=== PATIENT | male | born 1950 | race Hispanic/Latino ===

== ENCOUNTER → 2019-11-12 | Outpatient (CLI) | payer OTHER ==
[~2019-11-12] MED LIST: AMLO5TAB9 PO; ASPI-1443 PO; ATOR20TA65 PO; CLOP75TA14 PO; GLIP10TA9 PO; ISOS20TA7 PO; LOSA100T58 PO; NITR0.4T50 SL; REGADENOSON 0.4 MG/5 ML PF SYG IVP SCH
== END | disposition home or self-care (01) ==
LOC: SHCH 07:52
PROVIDERS: ATTEND Internal Medicine Cardiovascular Disease
DX: R07.9 Chest pain, unspecified (principal); I25.709 Atherosclerosis of coronary artery bypass graft(s), unspecified, with unspecified angina pectoris
CPT/HCPCS: 78452; 93017; 96374; A9500 ×2; J2785

== ENCOUNTER 2020-05-11 19:55 | Observation (INO) | payer OTHER ==
[~2020-05-11] VITALS: Ht 165.1 cm; Wt 77.1 kg
[~2020-05-11 19:55] MED LIST changes: +AMLO-257 PO; -AMLO5TAB9 PO; -ISOS20TA7 PO; +ISOS20TA85 PO; -REGADENOSON 0.4 MG/5 ML PF SYG IVP SCH
[2020-05-11] MEDS ORDERED: NITROGLYCERIN 1GM/1 INCH PACKET TD ONE (20:06)
[2020-05-11] MEDS ORDERED: ASPIRIN 325 MG TABLET ONE (20:06)
[2020-05-11 21:08] LABS: BASOPHILS % (AUTO) 0.9 % (0.0-5.0); EOSINOPHILS % (AUTO) 2.7 % (0.0-8.0); HEMATOCRIT 39.8 % (42-54); LYMPHOCYTES % (AUTO) 31.4 % (21.0-51.0); MEAN CORPUSCULAR HEMOGLOBIN 30.8 pg (27.0-33.0); MEAN CORPUSCULAR HGB CONC 34.4 g/dL (32.0-36.0); MEAN CORPUSCULAR VOLUME 89.4 fL (79-99); MONOCYTES % (AUTO) 7.9 % (3.0-13.0); NEUTROPHILS % (AUTO) 56.4 % (40.0-77.0); PLATELET COUNT (AUTO) 280 K/uL (130-400); RED BLOOD CELL COUNT(AUTO) 4.45 MIL/uL (4.50-6.20); RED CELL DISTRIBUTION WIDTH 13.2 % (11.0-15.5); WHITE BLOOD COUNT (AUTO) 8.1 K/uL (4.8-10.8)
[2020-05-11 21:25] LABS: CREATININE 1.5 mg/dL (0.5-1.5); POTASSIUM 3.8 mmol/L (3.5-5.1)
[2020-05-11 21:31] LABS: INR 0.95 (0.85-1.15); PROTHROMBIN TIME 10.4 SEC (9.6-11.6)
[2020-05-11 21:35] LABS: ALBUMIN 4.1 g/dL (3.5-5.0); BILIRUBIN,TOTAL 0.3 mg/dL (0.2-1.0); TOTAL PROTEIN, SERUM 7.8 g/dL (6.0-8.3)
[2020-05-11] MEDS ORDERED: ONDANSETRON HCL 4 MG/2 ML VIAL IVP PRN (22:30)
[2020-05-11] MEDS ORDERED: HYDROMORPHONE HCL 0.5 MG/0.5 ML ML IVP PRN (23:00)
[2020-05-12] MEDS ORDERED: PANTOPRAZOLE 40 MG/VIAL IVP SCH (09:00)
[2020-05-12] MEDS ORDERED: OMEG100014 PO (10:11)
[2020-05-12] MEDS ORDERED: ISOS30TA92 PO (10:11)
[2020-05-12] MEDS ORDERED: ATOR40TA71 PO (10:11)
[2020-05-12] MEDS ORDERED: METF-446 PO (10:11)
[2020-05-12] MEDS ORDERED: metoprolol PO (10:11)
[2020-05-12] MEDS ORDERED: OMEP40CA13 PO (10:11)
[2020-05-12] MEDS ORDERED: VALS320T16 PO (10:11)
[2020-05-12] MEDS ORDERED: vitamin d PO (10:11)
[2020-05-12] MEDS ORDERED: METF-444 PO (10:11)
[2020-05-12] MEDS ORDERED: ALLO300T2 PO (10:11)
== END 2020-05-12 10:22 | disposition home or self-care (01) ==
LOC: EDH 19:55 → EDHIP 22:09
PROVIDERS: ADMIT Internal Medicine; ATTEND Internal Medicine
DX: R07.89 Other chest pain (principal); Z20.828 Contact with and (suspected) exposure to other viral communicable diseases; I25.10 Atherosclerotic heart disease of native coronary artery without angina pectoris; I10 Essential (primary) hypertension; E78.5 Hyperlipidemia, unspecified; E11.9 Type 2 diabetes mellitus without complications; Z95.1 Presence of aortocoronary bypass graft; Z79.899 Other long term (current) drug therapy
CPT/HCPCS: 36415; 71045; 80053; 84484 ×3; 85025; 85610; 85730; 87426; 93005 ×2; 99291; G0378 ×12; U0003

== ENCOUNTER → 2020-12-28 | Outpatient (CLI) | payer OTHER ==
[~2020-12-28] MED LIST changes: +ALLO300T2 PO; -AMLO-257 PO; -ATOR20TA65 PO; +ATOR40TA71 PO; -GLIP10TA9 PO; -ISOS20TA85 PO; +ISOS30TA92 PO; -LOSA100T58 PO; +METF-444 PO; +METF-446 PO; -NITR0.4T50 SL; +OMEG100014 PO; +OMEP40CA21 PO; +VALS320T16 PO; +metoprolol PO; +vitamin d PO
== END | disposition home or self-care (01) ==
LOC: SHCH 13:09
PROVIDERS: ATTEND Internal Medicine Cardiovascular Disease
DX: I73.9 Peripheral vascular disease, unspecified (principal)
CPT/HCPCS: 93925

== ENCOUNTER → 2022-10-04 | Outpatient (CLI) | payer OTHER ==
[~2022-10-04] MED LIST changes: +CLOP-31 PO; -CLOP75TA14 PO
== END | disposition home or self-care (01) ==
LOC: RAH 07:40
PROVIDERS: ATTEND Internal Medicine
DX: L03.116 Cellulitis of left lower limb (principal); M25.475 Effusion, left foot
CPT/HCPCS: 73718

== ENCOUNTER → 2023-03-14 | Outpatient (CLI) | payer OTHER ==
[~2023-03-14] MED LIST changes: +ALLO100T PO; +METO-408 PO; +REGADENOSON 0.4 MG/5 ML PF SYG IVP ONE
== END | disposition home or self-care (01) ==
LOC: SHCH 08:14
PROVIDERS: ATTEND Internal Medicine Cardiovascular Disease
DX: I25.9 Chronic ischemic heart disease, unspecified (principal); R06.02 Shortness of breath; R06.00 Dyspnea, unspecified
CPT/HCPCS: 78452; 93017; J2785; A9500 ×2; 96374

== ENCOUNTER 2023-03-20 10:46 | Day surgery (SDC) | payer OTHER ==
[2023-03-19 14:52] VITALS: BP 157/72; PULSE 61; RESP 18
[2023-03-19 14:59] LABS: BASOPHILS # (AUTO) 0.09 K/uL (0.00-0.20); BASOPHILS % (AUTO) 0.9 % (0.0-5.0); EOSINOPHILS # (AUTO) 0.19 K/uL (0.00-0.70); EOSINOPHILS % (AUTO) 1.9 % (0.0-8.0); HEMATOCRIT 40.7 % (42-54); IMMATURE GRANULOCYTE ABSOLUTE 0.05 K/uL (0-1); LYMPHOCYTES # (AUTO) 2.2 K/uL (1.0-4.8); LYMPHOCYTES % (AUTO) 21.7 % (21.0-51.0); MEAN CORPUSCULAR HEMOGLOBIN 28.9 pg (27.0-33.0); MEAN CORPUSCULAR HGB CONC 32.9 g/dL (32.0-36.0); MEAN CORPUSCULAR VOLUME 87.9 fL (79-99); MONOCYTES # (AUTO) 0.7 K/uL (0.1-1.0); MONOCYTES % (AUTO) 6.8 % (3.0-13.0); NEUTROPHILS # (AUTO) 6.9 K/uL (1.8-7.7); NEUTROPHILS % (AUTO) 68.2 % (40.0-77.0); PLATELET COUNT (AUTO) 372 K/uL (130-400); RED BLOOD CELL COUNT(AUTO) 4.63 MIL/uL (4.50-6.20); RED CELL DISTRIBUTION WIDTH 15.6 % (11.0-15.5); WHITE BLOOD COUNT (AUTO) 10.1 K/uL (4.8-10.8)
[2023-03-19 15:02] LABS: APPEARANCE,URINE CLEAR (CLEAR); BILIRUBIN,URINE NEGATIVE (NEGATIVE); COLOR,URINE LIGHT-YELLOW (YELLOW); GLUCOSE, URINE (UA) NEGATIVE (NEGATIVE); KETONES,URINE NEGATIVE (NEGATIVE); LEUKOCYTE ESTERASE ,URINE NEGATIVE Leu/uL (NEGATIVE); NITRATE,URINE NEGATIVE (NEGATIVE); OCCULT BLOOD,URINE NEGATIVE (NEGATIVE); PH,URINE 5.5 (5.0-8.0); PROTEIN,URINE 10 mg/dL (NEGATIVE); UROBILINOGEN,URINE 0.2 mg/dL (0.2-1.0)
[2023-03-19 15:03] LABS: CREATININE 1.8 mg/dL (0.5-1.5); POTASSIUM 4.4 mmol/L (3.5-5.1)
[2023-03-19 15:04] LABS: ADD UA MICROSCOPIC YES
[2023-03-19 15:05] LABS: MUCUS,URINE RARE LPF (None Seen); RBC,URINE 0-1 /HPF (0-1)
[2023-03-19 15:05] LABS: INR < 0.93 (0.85-1.15); PROTHROMBIN TIME 10.8 SEC (9.6-11.6)
[2023-03-19 15:06] LABS: PARTIAL THROMBOPLASTIN TIME 26.5 SEC (26.3-35.5)
[2023-03-19 15:23] LABS: B-TYPE NATRIURETIC PEPTIDE 79 pg/mL (0-100)
[~2023-03-20] VITALS: Ht 165.1 cm; Wt 73.8 kg
[2023-03-20] VITALS (9 sets, daily range): BP systolic 140–161; BP diastolic 62–81; PULSE 56–89; RESP 13–18
[~2023-03-20 10:46] MED LIST changes: -ALLO100T PO; -ALLO300T2 PO; -METF-446 PO; +PHARMACY COMMUNICATION MISC SCH; -REGADENOSON 0.4 MG/5 ML PF SYG IVP ONE; -metoprolol PO; -vitamin d PO
[2023-03-20] MEDS ORDERED: 0.9%NACL 1000ML 1,000 ML IV ONE (11:11)
[2023-03-20] MEDS ORDERED: ALLO100T PO (12:07)
[2023-03-20] MEDS ORDERED: LIDOCAINE HCL 400MG/20ML VIAL ONE (16:37)
[2023-03-20] MEDS ORDERED: FENTANYL CITRATE PF 50 MCG/1 ML 2ML VIAL ONE (16:37)
[2023-03-20] MEDS ORDERED: MIDAZOLAM HCL 1 MG/ML 2ML VIAL ONE ×2 (16:37→17:11)
[2023-03-20] MEDS ORDERED: IOHEXOL-350 75 ML VIAL IV ONE (16:37)
[2023-03-20] MEDS ORDERED: NITROGLYCERIN 50MG VIAL ONE (16:38)
[2023-03-20] MEDS ORDERED: VERAPAMIL HCL 2.5 MG/ML VIAL ONE (16:38)
[2023-03-20] MEDS ORDERED: HEPARIN 10,000 UNIT/10ML (1,000 UNIT/ML) VIAL ONE (16:38)
[2023-03-20] MEDS ORDERED: HYDRALAZINE 20MG/ML VIAL ONE (17:49)
[2023-03-20] MEDS ORDERED: LABETALOL 20MG SYG IV ONE (18:03)
[2023-03-20] MEDS ORDERED: DEXTROSE 50%-WATER 50 ML DISP.SYRIN IV PRN (18:30)
[2023-03-20] MEDS ORDERED: 0.9%NACL 1000ML 1,000 ML IV SCH (18:30)
[2023-03-20] MEDS ORDERED: GLUCAGON 1MG KIT 1 MG ML IM PRN (18:30)
[2023-03-20] MEDS ORDERED: ACETAMINOPHEN 500 MG TABLET ONE (19:31)
== END 2023-03-20 20:35 | disposition home or self-care (01) ==
LOC: DAH 10:46
PROVIDERS: ATTEND Student in an Organized Health Care Education/Training Program
DX: I25.119 Atherosclerotic heart disease of native coronary artery with unspecified angina pectoris (principal); I35.0 Nonrheumatic aortic (valve) stenosis; I25.82 Chronic total occlusion of coronary artery; E78.00 Pure hypercholesterolemia, unspecified; I10 Essential (primary) hypertension; Z80.0 Family history of malignant neoplasm of digestive organs; Z82.49 Family history of ischemic heart disease and other diseases of the circulatory system; Z83.3 Family history of diabetes mellitus; Z72.89 Other problems related to lifestyle; Z95.5 Presence of coronary angioplasty implant and graft; Z79.82 Long term (current) use of aspirin; Z79.01 Long term (current) use of anticoagulants; Z79.899 Other long term (current) drug therapy; Z98.890 Other specified postprocedural states
CPT/HCPCS: 80048; 83880; 85025; 85610; 85730; 81001; 36415; 71045; 93005; 93459; 82948 ×3; C1769; C1887; A4649; C1894; J3010; J3490 ×3; J7030; J0360; J1644 ×2; J2250 ×2; Q9967; A4215; A4222; A4221; A4663; A4216; A4606; A4223 ×3; 99156; 99157